=== PATIENT | male | born 1965 | race Caucasian/White ===

== ENCOUNTER 2023-12-29 19:28 | Emergency (ER) | payer MEDICARE ==
[~2023-12-29] VITALS: Ht 185.4 cm; Wt 68.6 kg
[2023-12-29 19:45] LABS: BASOPHILS 0.6 % (0-2); EOSINOPHILS 2.1 % (0-6); HEMATOCRIT 46.7 % (35.0-50.0); HEMOGLOBIN 15.6 g/dL (12.0-18.0); LYMPHOCYTES 12.2 % (24-44); MCH 29.3 (27-36); MCHC 33.3 g/dl (30-36); MCV 87.8 fl (81-99); MONOCYTES 6.3 % (0-12); NEUTROPHILS 78.8 % (39-80); PLATELET COUNT 193 K/uL (140-440); RBC 5.31 M/ul (4.3-5.7); RDW 14.1 (10.5-15.0)
[2023-12-29] MEDS ORDERED: LACTATED RINGER'S 1,000 ML IV ONE (19:45)
[2023-12-29] MEDS ORDERED: SERTRALINE HCL25 MG (19:47)
[2023-12-29] MEDS ORDERED: MELOXICAM15 MG (19:47)
[2023-12-29] MEDS ORDERED: CYCLOBENZAPRINE10 MG (19:48)
[2023-12-29] MEDS ORDERED: LEVOTHYROXINE112 MC1 (19:48)
[2023-12-29] MEDS ORDERED: ROSUVASTATIN CA10 MG (19:48)
[2023-12-29 20:05] LABS: MAGNESIUM 1.7 mg/dL (1.8-2.4); PHOSPHORUS, INORGANIC 3.7 mg/dL (2.5-4.9); TSH, 3RD GENERATION 9.791 uIU/mL (0.358-3.740)
[2023-12-29] MEDS ORDERED: ASPIRIN81 MG (20:10)
[2023-12-29] MEDS ORDERED: FAMOTIDINE 20 MG/ 2 ML VIAL IV ONE (20:15)
[2023-12-29] MEDS ORDERED: ondansetron HCL 4 MG/2 ML VIAL IV ONE ×2 (20:15→23:45)
[2023-12-29 20:41] LABS: ALBUMIN 4.2 g/dL (3.4-5.0); ALBUMIN/GLOBULIN RATIO 1.14 (1.1-2.4); ANION GAP 18.8 (7-21); BILIRUBIN, TOTAL 1.3 ng/dL (0.2-1.0); BUN/CREATININE RATIO 15.78 (6.0-28.6); CALCIUM 10.1 mg/dL (8.5-10.1); CREATININE, SERUM 1.33 mg/dL (0.70-1.30); POTASSIUM 3.8 mmol/L (3.5-5.1); PROTEIN, TOTAL 7.9 g/dL (6.4-8.2)
[2023-12-29 21:41] LABS: BILIRUBIN, URINE NEGATIVE (negative); BLOOD/HGB, URINE NEGATIVE (Negative); KETONE, URINE NEGATIVE (Negative); LEUK ESTERASE, URINE NEGATIVE (negative); NITRITE, URINE NEGATIVE (negative); PH, URINE 7.5 (5-7)
[2023-12-29 21:46] LABS: EPITHELIAL CELLS, URINE SQUAMOUS 1+ /lpf (0-1+)
[2023-12-29 21:47] LABS: BACTERIA, URINE RARE /hpf (negative); CASTS, URINE NONE SEEN \\lpf; COLLECTION TYPE, URINE CLEAN CATCH; CRYSTALS, URINE NONE SEEN (0-1+); RED BLOOD CELLS, URINE 0-1 /hpf (0-5); REFLEX CULTURE, URINE No (No); WHITE BLOOD CELLS, URINE 0-1 /HPF (0-5)
[2023-12-29 21:57] LABS: AMPHETAMINES, URINE NEGATIVE (NEGATIVE); BARBITURATES, URINE NEGATIVE (NEGATIVE); BENZODIAZEPINE, URINE NEGATIVE (NEGATIVE); BUPRENORPHINE, URINE NEGATIVE (NEGATIVE); CANNABINOID, URINE POSITIVE (NEGATIVE); COCAINE, URINE NEGATIVE (NEGATIVE); ECSTASY, URINE NEGATIVE (NEGATIVE); FENTANYL, URINE NEGATIVE (NEGATIVE); METHADONE, URINE NEGATIVE (NEGATIVE); OPIATES, URINE NEGATIVE (NEGATIVE); OXYCODONE, URINE NEGATIVE (NEGATIVE); PHENCYCLIDINE, URINE NEGATIVE (NEGATIVE)
[2023-12-29] MEDS ORDERED: TENECTEPLASE 50 MG/10 ML VIAL IV ONE (22:30)
[2023-12-29 22:45] LABS: INR 1.05 (0.80-1.30); PROTIME 13.3 Sec (11.2-14.2)
[2023-12-29 22:47] LABS: PARTIAL THROMBOPLASTIN TIME 24.7 Sec (22.9-41.3)
[2023-12-29] MEDS ORDERED: niCARdipine HCL 50 MG in DEXTROSE 5% 250 ML IV SCH (23:00)
[2023-12-29] MEDS ORDERED: LACTATED RINGER'S 1,000 ML IV SCH (23:45)
[2023-12-30] MEDS ORDERED: LORazepam 2 MG/ML VIAL ONE ×2 (00:03→00:33)
[2023-12-30] MEDS ORDERED: ACETAMINOPHEN 500 MG TAB PO ONE (00:15)
[2023-12-30] MEDS ORDERED: propofoL 100 ML IV ONE (00:16)
[2023-12-30] MEDS ORDERED: MIDAZOLAM HCL 2 MG/2 ML VIAL ONE (00:21)
[2023-12-30] MEDS ORDERED: propofoL 100 ML IV SCH (00:30)
[2023-12-30] MEDS ORDERED: FENTANYL CITRATE-0.9 % NACL/PF 100 ML IV SCH (00:30)
[2023-12-30] MEDS ORDERED: LORazepam 2 MG/ML VIAL IV ONE ×2 (00:45)
[2023-12-30] MEDS ORDERED: SUCCINYLCHOLINE CHLORIDE 20 MG/ML MDV IV ONE (00:45)
[2023-12-30] MEDS ORDERED: MIDAZOLAM HCL 2 MG/2 ML VIAL IV ONE (00:45)
[2023-12-30] MEDS ORDERED: levETIRAcetam 500 MG/5 ML VIAL IV ONE (01:10)
[2023-12-30 01:25] VITALS: BP 128/65
--- NOTE | 2023-12-30 14:50 | EKG ---
[facility] [address] [place] [address] Signed Normal sinus rhythm Minimal voltage criteria for LVH, may be normal variant ( Sokolow-Lund ) Nonspecific ST abnormality Prolonged QT Abnormal ECG No previous ECGs available Confirmed by Blake Whyte MD () on 12/30/2023 2:50:39 PM Electronically Signed By: BLAKE WHYTE MD 12/30/23 1450 PATIENT NAME: KIZZY MIRAMONTES Electrocardiogram DATE OF : 65 PHYSICIAN: BLAKE WHYTE MD REPORT #: [id number] REPORT IS CONFIDENTIAL AND NOT TO BE RELEASED WITHOUT AUTHORIZATION
== END 2023-12-30 01:25 | disposition short-term general hospital (02) ==
LOC: ED 19:28
PROVIDERS: Internal Medicine
DX: U07.1 COVID-19 (principal); I63.9 Cerebral infarction, unspecified; Z79.82 Long term (current) use of aspirin; Z79.899 Other long term (current) drug therapy; Z91.012 Allergy to eggs; Z91.018 Allergy to other foods; Z91.048 Other nonmedicinal substance allergy status
CPT/HCPCS: 31500; 36415; 70450; 70496; 70498; 71045; 80053; 80307; 81001; 82553; 83735; 83880; 84100; 84443; 84484; 85025; 85384; 85610; 85730; 93005; 93010; 99291; 99292; G0480; J0330; J1953; J2060; J2250; J2405; J2704; J3101; J7060; J7121; Q3014; Q9967; U0002